=== PATIENT | male | born 1975 | race African-American/Black ===

== ENCOUNTER 2020-07-13 05:46 | Emergency (ER) | payer BC ==
[2020-07-13] MEDS ORDERED: Boostrix 0.5 ML VIAL ONE (06:26)
== END 2020-07-13 06:45 | disposition home or self-care (01) ==
LOC: MADERS 05:46
DX: S61.411A Laceration without foreign body of right hand, initial encounter (principal); V89.2XXA Person injured in unspecified motor-vehicle accident, traffic, initial encounter
CPT/HCPCS: 12001; 90471; 90715; G0390